=== PATIENT | female | born 1990 | race Caucasian/White ===

== ENCOUNTER 2016-09-28 20:29 | Emergency (ER) | payer OTHER ==
--- NOTE | 2016-09-28 21:19 | PD ---
HPI Chief Complaint Contractions Date Seen: Sep 28, 2016 Time Seen: 21:15 Travel History International Travel<30 Days: No Contact w/Intl Traveler<30Days: No Known Affected Area: No History of Present Illness HPI 26-year-old who is at 40 weeks and 2 days comes in today complaining of contractions for the past 4-5 hours. [facility] [place] and they had discussed with her an induction at 41 + weeks at her last appointment. Patient was fingertip dilated at her last appointment. She is group B strep negative and has had no complications. Para: 0 : 2 Miscarriage: 1 History Past Medical History Medical History: Denies Significant Hx Past Surgical History Narrative [facility] teeth Family History Family History: Negative Social History Alcohol Use: No Tobacco Use: No Substance Abuse: No Review of Systems Except as stated in HPI: all other systems reviewed are Neg Physical Exam Narrative GENERAL: Well-nourished, well-developed patient. SKIN: Warm and dry. HEAD: Normocephalic and atraumatic. EYES: No scleral icterus. No injection or drainage. ENT: No nasal drainage noted. Mucous membranes pink. Airway patent. NECK: Supple, trachea midline. No JVD. CARDIOVASCULAR: Regular rate and rhythm without murmurs, gallops, or rubs. RESPIRATORY: Breath sounds equal bilaterally. No accessory muscle use. ABDOMEN/GI: Abdomen soft, non-tender, bowel sounds present, no rebound, no guarding Gravid to [40-] weeks size Fundal Height: [-] GENITOURINARY: External Genitalia: intact and normal in appearance BUS glands: [-Normal] Cervix: [-Posterior] Dilatation: [-Fingertip] Effacement: [50-] Station: [--2] Presentation: [-] Membranes: [intact] Uterine Contractions: [-Irregular every 5-10 minutes] FHT's: Category: [-1] Baseline: [145-] Reactive: [-Moderate] Variability: [-Moderate] Decels: [Absent-] EXTREMITIES: No cyanosis or edema. BACK: Nontender without obvious deformity. No CVA tenderness. NEUROLOGICAL: Awake and alert. Motor and sensory grossly within normal limits. Five out of 5 muscle strength in all muscle groups. Normal speech. Data Data Vital Signs Reviewed: Yes MDM Plan 26-year-old who is at 40 weeks and 2 days with irregular contractions but no cervical change since her last visit 3-4 days ago. Patient's shelver and Hospital is in [place] and patient is discussing with her physician the possibilities for an induction. She will call her shelver tomorrow. Diagnosis Diagnosis: Primary Impression: 40 weeks gestation of Additional Impression: False labor after 37 completed weeks of gestation Disposition: 01 DISCHARGE HOME Veronique Berkowitz MD Sep 28, 2016 21:19
== END 2016-09-28 21:45 | disposition home or self-care (01) ==
LOC: HOBED 20:29
DX: O47.1 False labor at or after 37 completed weeks of gestation (principal); Z3A.40 40 weeks gestation of pregnancy
CPT/HCPCS: 59025

== ENCOUNTER → 2017-01-03 | Day surgery (SDC) | payer OTHER ==
[~2017-01-03] VITALS: Ht 167.6 cm; Wt 76.0 kg
[~2017-01-03] MED LIST: BUPIVACAINE/EPINEPHRINE 0.5% PF 30 ML VIAL ONE; CHLORHEXIDINE GLUCONATE 2 % 1 PACK (2 CLOTHS) TOPICAL PRN; CLAR10CA3 PO; DO NOT ADM ANY ANTICOAGULANT DRUGS PRN; GLYCOPYRROLATE 1 MG/5 ML SYRINGE IV PUSH ONE; HYDROmorphone HCL PF 1 MG/ML VIAL ONE; LACTATED RINGER'S 1000 ML IV PRN; LIDOCAINE 1%/EPINEPHrine 1:100,000 SOLN 20 ML VIAL ONE; LIDOCAINE HCL 1% PF 5 ML SYRINGE OTHER ONE; METOPROLOL TARTRATE 25 MG TAB PO PRN; MIDAZOLAM HCL 2 MG/2 ML VIAL IV ONE; MORPHINE SULFATE 2 MG/ML INJ IV PRN; NEOSTIGMINE 3 MG/3 ML SYR IV ONE; ONDANSETRON HCL 4 MG/2 ML VIAL IV PUSH ONE; ONDANSETRON HCL 4 MG/2 ML VIAL IV PUSH PRN; POVIDONE IODINE 5% (ANTISEPSIS KIT) 4 APPLICATIONS EACH NARE PRN; PREN29TA PO; PROMETHAZINE INJ 25 MG/ML VIAL ONE; PROPOFOL 200 MG/20 ML AMP IV ONE; ROCURONIUM INJ 50 MG/5 ML SYRINGE IV PUSH ONE; SODIUM CHLORID 0.9% 500 ML IV PRN; ceFAZolin 2 GM PREMIX 50 ML ONE; metroNIDAZOLE 500 MG INJ 100 ML IV ONE
[2017-01-03 13:17] LABS: AUTOMATED NEUTROPHIL # 5.1 TH/MM3 (1.8-7.7); BASOPHIL % 0.6 % (0.0-2.0); EOSINOPHIL # 0.2 TH/MM3 (0-0.4); EOSINOPHIL % 2.1 % (0.0-4.0); HEMATOCRIT 38.3 % (35.0-46.0); HEMO FLAGS DIFF FINAL; LYMPH % 20.2 % (9.0-44.0); LYMPHOCYTE # 1.5 TH/MM3 (1.0-4.8); MEAN CELL VOLUME 84.3 FL (80.0-100.0); MEAN CORPUSCULAR HEMOGLOBIN 28.6 PG (27.0-34.0); MONO % 9.7 % (0.0-8.0); NEUT % 67.4 % (16.0-70.0); PLATELET COUNT 239 TH/MM3 (150-450); RED BLOOD COUNT 4.55 MIL/MM3 (4.00-5.30); RED CELL DISTRIBUTION WIDTH 14.2 % (11.6-17.2); WHITE BLOOD COUNT 7.6 TH/MM3 (4.0-11.0)
[2017-01-03 13:42] LABS: BICARBONATE 24.4 MEQ/L (21.0-32.0)
[2017-01-03 13:44] LABS: POTASSIUM 4.1 MEQ/L (3.5-5.1)
[2017-01-03 17:30] VITALS: BP 119/70; PULSE 85; RESP 20; TEMP 97.8; O2SAT 99
--- NOTE | 2017-01-04 07:12 | MP ---
cc: MONTEZ ARRIAGA M.D. DATE OF SURGERY January 03, 2017 PREOPERATIVE DIAGNOSIS Anovaginal fistula. POSTOPERATIVE DIAGNOSES Anovaginal fistula. Defect in anal muscle. PROCEDURE 1. Mucosal advancement flap. 2. Overlapping sphincteroplasty. SURGEON MD Ja ANESTHESIA General per ET tube. ESTIMATED BLOOD LOSS 50 cc OPERATIVE INDICATIONS The patient is a 26-year-old female who is three months who had a precipitous with a fourth degree laceration. She developed an anovaginal fistula. OPERATIVE FINDINGS The patient has an obvious anovaginal fistula in the midportion of the anal canal measuring about 2-3 mm in diameter. Upon dissection she had almost no muscle anteriorly; however, the muscle both on the right and left side were fairly robust. OPERATIVE COURSE The patient was brought to the operating room and placed in supine position. After induction of general anesthesia the patient was turned to the prone-jackknife position and all bony prominences were carefully padded. The skin of the buttocks was then gently taped apart. The skin of the perineal area as well as the fascial area was then prepped and draped in the usual sterile fashion. The fistula was easily visualized. Initially rectal block with a one-to-one mixture of 0.5% Marcaine with 1:100,000 epinephrine and 1% lidocaine with 1:100,000 epinephrine. Additional lidocaine was placed in the submucosal tissue circumferentially around the fistula and on the right and left side of the vagina. The fistula was then clearly visualized. The mucosal flap was then gently started just distal to the fistula and the extremely thin rectovaginal septum was carefully dissected free from the rectovaginal septum for a distance of about 3 cm and half circumferential of the anus and lower rectum. At this point the fistula was easily visualized and the muscle was evaluated and was found to be basically absent on either side. Muscles were located on the right and left side and the ends were freed for a distance of 1-2 cm. This allowed mobility of the muscle for an overlapping sphincteroplasty. Hemostasis at this point was obtained with electrocautery. An overlapping sphincteroplasty was made with interrupted sutures of 2-0 PDS. The perineum was then reapproximated in interrupted fashion using 3-0 Vicryl and closed transversely to cover the distal more anterior half of the sphincteroplasty. The edges of the flap were then trimmed and the flap was then brought down to lay over the surface of the sphincteroplasty and sutured in place in an interrupted [id number] fashion using 3-0 Vicryl to close. The flap appeared healthy and intact circumferentially along its length. Tatianna was placed prior to final closure. The vaginal site was then examined and was widely open for drainage. A dressing was then applied. All sponge, needle and instrument counts were correct and the patient was returned to the post-anesthesia care in stable condition. MD JARETT Nails/SSB /4:04 PM /7:04 AM
== END | disposition home or self-care (01) ==
LOC: HSDC 11:40
PROVIDERS: ATTEND Colon & Rectal Surgery
DX: N82.3 Fistula of vagina to large intestine (principal); K60.3 Anal fistula
CPT/HCPCS: 00902; 46288; 80048; 85025; J0690; J1170; J2250; J2270; J2405; J2550; J2710; J3010; J7120